=== PATIENT | male | born 1980 | race Caucasian/White ===

== ENCOUNTER 2020-12-08 13:02 | Emergency (ER) | payer OTHER | END 2020-12-08 16:55 | disposition home or self-care (01) | LOC: JVIRT 13:02 | DX: Z11.52 Encounter for screening for COVID-19 (principal) | CPT/HCPCS: C9803; G2012-GT; U0003 ==

== ENCOUNTER 2020-12-14 09:53 | Emergency (ER) | payer OTHER | END 2020-12-14 10:02 | disposition home or self-care (01) | LOC: JVIRT 09:53 | DX: Z11.52 Encounter for screening for COVID-19 (principal) | CPT/HCPCS: C9803; G2012-GT; U0003 ==